=== PATIENT | female | born 1970 | race Caucasian/White ===

== ENCOUNTER 2017-01-12 06:10 | Day surgery (SDC) | payer MEDICAID ==
[~2017-01-12] VITALS: Ht 157.5 cm; Wt 153.3 kg
[~2017-01-12 06:10] MED LIST: AMITRIPTYLINE 225 MG PO; ASMANEX220 MC1 IH; CLARITIN 10MG T10 MG PO; ELIQUIS5 MG PO; ESCITALOPRAM10 M1 PO; LISINOPRIL5 MG NG; METFORMIN 500M500 M1 PO; METOPROLOL SUCC25 M2 PO; PANTOPRAZOLE SO40 M1 PO; PERMETHRIN TP; PRAVACHOL40 MG PO; RANITIDINE HCL300 M1 PO; TORSEMIDE20 M1 PO; VENTOLIN H0.09 MG/Ac IH
--- NOTE | 2017-01-12 08:00 | Operative Note ---
Procedure/Operative Record Date of Procedure: 01/12/17 Pre-op diagnosis: Dysfunctional uterine bleeding Post-op diagnosis: Dysfunctional uterine bleeding, Samuel hyperplasia Procedure performed: Diagnostic hysteroscopy with dilatation and curettage Surgeon: Stefan Nelson Anesthesia: Gen., [facility] Indications: Dysfunctional uterine bleeding Description of procedure: After the patient was prepped and draped in usual fashion and general anesthesia was administered, a weighted speculum was placed within the posterior fourchette of the vagina, but visualization was poor because of lateral wall relaxation. A large bivalve speculum was then used and visualization was better. The cervix was well-retracted, and the anterior lip was grasped with a single-tooth tenaculum. Cervix was then dilated to number 14 Hegar dilators. A sharp curette was introduced into the endocervix, but there was no retrievable tissue. Using 1.5 percent glycine as a distending medium, and operating hysteroscope was introduced into the endometrial cavity. Introduction was difficult, as the internal os was constricted. Although the uterus sounded to 8 cm, the hysteroscope was unable to be introduced that far. What was seen appeared to be endometrial hyperplasia. A sharp curette was introduced into the endometrial cavity, with retrieval of a small amount of lush endometrium. At this point, visualization became poor, and the procedure was terminated. The instruments removed. The sponge and needle counts correct. The estimated blood loss was 10 mL. The patient tolerated the procedure well, and was taken to PACU in excellent condition. She'll be discharged today, if her vital signs are stable. EBL (ml): 10 Complications: None Specimens: Uterine curettings at 0800
--- NOTE | 2017-01-12 08:08 | Anesthesia Record ---
Anesthesia Record Part I Total IV fluids: 300 EBL (ml): 10 Urine Output: 0 B/P: 118/74 % SaO2: 96 Pulse: 63 Resps: 18 Temp: 97 Patient is: Awake, Nasal O2, Stable Stable to PACU at: 0803 at 0807
--- NOTE | 2017-01-12 08:08 | Anesthesia Record ---
Anesthesia Record Part II Discharge time: 832 Destination: Same day surgery PACU nurse assessment review? Yes Patient is: Awake, Stable Anesthesia complications? No at 0807
[2017-01-12 09:05] LABS: HEMOGLOBIN 11.3 g/dL (12.2-16.2)
[2017-01-12 11:51] VITALS: BP 115/68
== END 2017-01-12 09:30 | disposition home or self-care (01) ==
LOC: SDC 06:10
PROVIDERS: Obstetrics & Gynecology
PROC: 0UDB8ZX Extraction of Endometrium, Via Natural or Artificial Opening Endoscopic, Diagnostic (ICD-10-PCS; principal; 2017-01-12 07:30)
DX: N93.8 Other specified abnormal uterine and vaginal bleeding (principal)